=== PATIENT | male | born 1950 | race Hispanic/Latino ===

== ENCOUNTER → 2018-06-19 | Outpatient (CLI) | payer MEDICARE, OTHER ==
[~2018-06-19] MED LIST: IOPAMIDOL-370 100 ML VIAL IV ONE
== END | disposition home or self-care (01) ==
LOC: RAH 13:03
PROVIDERS: ATTEND Internal Medicine Critical Care Medicine
DX: J32.0 Chronic maxillary sinusitis (principal); J32.2 Chronic ethmoidal sinusitis; J90 Pleural effusion, not elsewhere classified; R18.8 Other ascites; M47.815 Spondylosis without myelopathy or radiculopathy, thoracolumbar region; J98.11 Atelectasis
CPT/HCPCS: 70450; 71275; Q9967